=== PATIENT | female | born 1930 | race Caucasian/White ===

== ENCOUNTER → 2017-04-18 | Outpatient (CLI) | payer OTHER | LOC: BMCIMAGING 09:19 | PROVIDERS: ATTEND Internal Medicine | DX: M16.0 Bilateral primary osteoarthritis of hip (principal); M53.3 Sacrococcygeal disorders, not elsewhere classified ==

== ENCOUNTER → 2017-05-29 | Outpatient (CLI) | payer OTHER | LOC: FIMAGING 09:41 | PROVIDERS: ATTEND Internal Medicine | DX: K83.8 Other specified diseases of biliary tract (principal); K86.2 Cyst of pancreas ==

== ENCOUNTER → 2018-10-22 | Outpatient (CLI) | payer OTHER | LOC: BMCIMAGING 13:42 ==